=== PATIENT | female | born 1985 | race Caucasian/White ===

== ENCOUNTER 2017-06-26 09:02 | Emergency (ER) | payer BC ==
[~2017-06-26] VITALS: Ht 154.9 cm; Wt 74.8 kg
[2017-06-26 09:02] VITALS: BP_SYST 137
[2017-06-26 09:31] LABS: BILIRUBIN,URINE NEGATIVE (NEGATIVE); BLOOD, URINE 3+ (NEGATIVE); CLARITY/URINE CLEAR (CLEAR); COLOR,URINE YELLOW (YELLOW); GLUCOSE,URINE NEGATIVE (NEGATIVE); KETONES,URINE NEGATIVE (NEGATIVE); LEUKOCYTE ESTERASE ,URINE NEGATIVE (NEGATIVE); NITRITE, URINE NEGATIVE (NEGATIVE); PH,URINE 6.5 (5.0-8.0); PROTEIN URINE NEGATIVE (NEGATIVE); UROBILINOGEN,URINE 0.2 (0.2-1.0)
[2017-06-26 09:33] LABS: BASOPHILS # (AUTO) 0.1 K/uL (0.0-0.2); BASOPHILS % (AUTO) 0.9 % (0.0-2.0); EOSINOPHILS # (AUTO) 0.1 K/uL (0.0-0.4); EOSINOPHILS % (AUTO) 1.4 % (0.0-4.0); HEMATOCRIT 41.6 % (36-48); HEMOGLOBIN 13.9 g/dL (12.0-16.0); LYMPHOCYTES # (AUTO) 1.5 K/uL (1.0-5.5); LYMPHOCYTES % (AUTO) 26.4 % (20.5-51.5); MEAN CORPUSCULAR HEMOGLOBIN 32 pg (27-31); MEAN CORPUSCULAR HGB CONC 33 % (32-36); MEAN CORPUSCULAR VOLUME 94 fL (79.0-98.0); MONOCYTES # (AUTO) 0.5 K/uL (0.0-1.0); NEUTROPHILS # (AUTO) 3.6 K/uL (1.8-7.7); NEUTROPHILS % (AUTO) 62.3 % (40.0-70.0); PLATELET COUNT (AUTO) 218 K/uL (130-430); RED BLOOD CELL COUNT(AUTO) 4.41 MIL/uL (4.2-6.2); RED CELL DISTRIBUTION WIDTH 11.8 % (9.0-15.0); WHITE BLOOD COUNT (AUTO) 5.8 K/uL (4.8-10.8)
[2017-06-26 09:53] LABS: BACTERIA,URINE FEW /HPF (None Seen); MUCUS,URINE 1+ /LPF (None Seen); WBC,URINE 0-3 /HPF (0-3)
[2017-06-26 10:05] LABS: PROTHROMBIN TIME 10.3 SECS (9.5-12.5)
[2017-06-26 12:25] VITALS: BP_SYST 125
== END 2017-06-26 12:24 | disposition home or self-care (01) ==
LOC: SED 09:02
DX: O46.91 Antepartum hemorrhage, unspecified, first trimester (principal); J45.909 Unspecified asthma, uncomplicated; Z3A.08 8 weeks gestation of pregnancy
CPT/HCPCS: 36415; 76801; 76817; 81000-TC; 81025; 84702-TC; 85025; 85610-TC; 85730-TC; 86900; 86901; 99285

== ENCOUNTER 2018-02-16 10:34 | Observation (INO) | payer OTHER, BC ==
[~2018-02-16] VITALS: Ht 154.9 cm; Wt 83.9 kg
== END 2018-02-16 13:11 | disposition home or self-care (01) ==
LOC: SPU 10:34
PROVIDERS: ADMIT Obstetrics & Gynecology; ATTEND Obstetrics & Gynecology
DX: O46.93 Antepartum hemorrhage, unspecified, third trimester (principal); Z3A.33 33 weeks gestation of pregnancy
CPT/HCPCS: 76805; 81002; G0378

== ENCOUNTER 2018-03-31 05:00 | Inpatient (IN) | payer OTHER, BC ==
[~2018-03-31] VITALS: Ht 154.9 cm; Wt 91.6 kg
[2018-03-31] MEDS ORDERED: LR 1,000 ML IV SCH ×3 (05:18→08:57)
[2018-03-31] MEDS ORDERED: CITRIC ACID/SODIUM CITRATE 30 ML UDC PO ONE (05:30)
[2018-03-31] MEDS ORDERED: CLINDAMYCIN 900 mg/50mL D5W 50 ML IV ONE ×2 (05:30→06:15)
[2018-03-31 06:39] VITALS: BP_SYST 131
[2018-03-31] MEDS ORDERED: GENTAMICIN 120 MG/ ISO-OSM 100 ML PREMIX IV ONE (07:30)
[2018-03-31 07:51] LABS: HEMOGLOBIN 11.7 g/dL (12.0-16.0); WHITE BLOOD COUNT (AUTO) 6.3 K/uL (4.8-10.8)
[2018-03-31 07:54] LABS: MEAN CORPUSCULAR HEMOGLOBIN 34 pg (27-31); MEAN CORPUSCULAR HGB CONC 36 % (32-36); MEAN CORPUSCULAR VOLUME 96 fL (79.0-98.0); PLATELET COUNT (AUTO) 142 K/uL (130-430); RED BLOOD CELL COUNT(AUTO) 3.43 MIL/uL (4.2-6.2); RED CELL DISTRIBUTION WIDTH 13.1 % (9.0-15.0)
[2018-03-31 08:02] LABS: CREATININE 0.42 mg/dL (0.55-1.30); POTASSIUM 3.8 mmol/L (3.5-5.1)
[2018-03-31] MEDS ORDERED: ONDANSETRON HCL 4 MG/2 ML VIAL IVP PRN (08:30)
[2018-03-31] MEDS ORDERED: KETOROLAC TROMETHAMINE 60 MG/2 ML VIAL IM PRN (08:30)
[2018-03-31] MEDS ORDERED: NALOXONE HCL 0.4 MG/ML AMP (NARCAN) IVP PRN (08:30)
[2018-03-31] MEDS ORDERED: DIPHENHYDRAMINE INJ 50 MG/ML VIAL IM PRN (08:30)
[2018-03-31] MEDS ORDERED: MEPERIDINE HCL/PF 25 MG/ML DISP.SYRIN IVP PRN (08:30)
[2018-03-31] MEDS ORDERED: MORPHINE SULFATE 10MG/10ML PF AMP SP SCH (08:30)
[2018-03-31] MEDS ORDERED: MEPERIDINE HCL/PF 50 MG/ML AMP IVP PRN ×2 (08:30)
[2018-03-31] MEDS ORDERED: METOCLOPRAMIDE HCL 10 MG/2 ML VIAL IVP PRN (08:30)
[2018-03-31] MEDS ORDERED: OXYTOCIN/0.9 % SODIUM CHLORIDE 1,000 ML IV ONE (08:57)
[2018-03-31] MEDS ORDERED: RHO(D) IMMUNE GLOBULIN/MALTOSE 1500 UNITS/1.3 ML (WINHRO) IM PRN (09:00)
[2018-03-31] MEDS ORDERED: SENNOSIDES/DOCUSATE SODIUM 1 TAB TABLET(SENOKOT-S) PO PRN (09:00)
[2018-03-31] MEDS ORDERED: OXYCODONE/ACETAMINOPHEN 5-325 TABLET PO PRN (09:00)
[2018-03-31] MEDS ORDERED: LANOLIN 7 GM OINT. TP PRN (09:00)
[2018-03-31] MEDS ORDERED: ANUSOL 1 EA SUPP.RECT (PREPARATION H) RC PRN (09:00)
[2018-03-31] MEDS ORDERED: DOCUSATE SODIUM 100 MG CAPSULE PO PRN (09:00)
[2018-03-31] MEDS ORDERED: BISACODYL 10 MG/SUPPOSITORY RC PRN (09:00)
[2018-03-31] MEDS ORDERED: MEASLES,MUMPS&RUBELLA VACC/PF 12500 UNIT/0.5 ML VIAL SUBQ PRN (09:00)
[2018-03-31 09:05] VITALS: BP_SYST 102
[2018-03-31 09:24] LABS: LYMPHOCYTES % (MANUAL) 12 % (20-46); MONOCYTES % (MANUAL) 2 % (0-11)
[2018-03-31 09:25] LABS: BAND % (MANUAL) 1 % (0-6); BASOPHILS % (MANUAL) 0 % (0-2); EOSINOPHILS % (MANUAL) 0 % (0-7)
[2018-03-31] MEDS ORDERED: TEMAZEPAM 15 MG CAPSULE PO PRN (21:00)
[2018-04-01] MEDS: IBUPROFEN 800 MG TABLET PO PRN ×3 (06:09→23:10)
[2018-04-01 09:00] LABS: HEMATOCRIT 31.5 % (36-48)
[2018-04-01] MEDS: SIMETHICONE 80 MG TAB.CHEW PO PRN ×2 (12:30→17:38)
[2018-04-01] MEDS: OXYCODONE/ACETAMINOPHEN 5-325 TABLET PO PRN (23:10)
[2018-04-02] MEDS: IBUPROFEN 800 MG TABLET PO PRN (06:00)
[2018-04-02] MEDS ORDERED: GENTAMICIN 120 mg/ NS 100 mL IVPB IV ONE (07:40)
[2018-04-02] MEDS ORDERED: BUPIVACAINE /PF 0.75% 10 ML VIAL INJ ONE (07:40)
[2018-04-02] MEDS ORDERED: NS IRRIG SOLN 1000 ML IR ONE (07:40)
[2018-04-02] MEDS ORDERED: ePHEDrine sulfate 50 MG/ML VIAL IVP ONE (07:40)
[2018-04-02] MEDS ORDERED: ONDANSETRON HCL 4 MG/2 ML VIAL IVP ONE (07:40)
[2018-04-02] MEDS ORDERED: MORPHINE SULFATE 10MG/10ML PF AMP EP ONE (07:40)
[2018-04-02] MEDS ORDERED: OXYTOCIN 10 UNIT/ML VIAL IV ONE (07:40)
[2018-04-02] MEDS ORDERED: MIDAZOLAM HCL 5 MG/5 ML VIAL IVP ONE ×2 (07:40)
[2018-04-02] MEDS ORDERED: LR 1,000 ML IV.SOLN IV ONE (07:40)
[2018-04-02] MEDS: OXYCODONE/ACETAMINOPHEN 5-325 TABLET PO PRN (09:30)
== END 2018-04-02 11:05 | disposition home or self-care (01) | DRG 766 ==
LOC: SPU 05:00
PROVIDERS: ADMIT Obstetrics & Gynecology; ATTEND Obstetrics & Gynecology
PROC: 10D00Z1 Extraction of Products of Conception, Low, Open Approach (ICD-10-PCS; principal; 2018-03-31 07:30)
DX: O34.211 Maternal care for low transverse scar from previous cesarean delivery (principal); O99.824 Streptococcus B carrier state complicating childbirth; O99.52 Diseases of the respiratory system complicating childbirth; O99.62 Diseases of the digestive system complicating childbirth; K21.9 Gastro-esophageal reflux disease without esophagitis; J45.909 Unspecified asthma, uncomplicated; E28.2 Polycystic ovarian syndrome; O34.83 Maternal care for other abnormalities of pelvic organs, third trimester; Z83.3 Family history of diabetes mellitus; Z37.0 Single live birth; Z3A.39 39 weeks gestation of pregnancy; Z83.49 Family history of other endocrine, nutritional and metabolic diseases; Z88.0 Allergy status to penicillin; Z87.440 Personal history of urinary (tract) infections
CPT/HCPCS: 36415; 80048; 85007; 85018-TC; 85027; 86592; 86886; 86900; 86901; 94760; J1580; J1885; J2250; J2274; J2405; J2590; J3490; J7120

== ENCOUNTER 2021-06-23 07:01 | Emergency (ER) | payer BC, OTHER ==
[~2021-06-23] VITALS: Ht 154.9 cm; Wt 86.2 kg
[2021-06-23 07:10] VITALS: BP_SYST 128
--- NOTE | 2021-06-23 07:10 | NUR ---
Pt walked in to ER with c/o cough x4 days, reports testing -Covid 1 day ago. Denies other flu-like symptoms at this time. V/S stable, no acute distress noted.
--- NOTE | 2021-06-23 07:10 | NUR ---
BROUGHT BACK TO BED #8 AND TRIAGED. REPORT GIVEN TO SANDI
--- NOTE | 2021-06-23 07:15 | NUR ---
ER Dr. Sanchez at bedside examining patient.
--- NOTE | 2021-06-23 07:44 | NUR ---
Radiology at bedside for CXR
[2021-06-23] MEDS ORDERED: PRED20TA PO (08:09)
[2021-06-23] MEDS ORDERED: IBUP-1969 PO (08:09)
--- NOTE | 2021-06-23 08:40 | NUR ---
Patient given written and verbal discharge instructions and verbalizes understanding. ER MD discussed with patient the results and treatment provided. Patient in stable condition. ID arm band removed. Rx of prednisone and motrin given. Patient educated on pain management and to follow up with PMD. Pain Scale 0. Opportunity for questions provided and answered. Medication side effect fact sheet provided.
[2021-06-23 08:42] VITALS: BP_SYST 128
== END 2021-06-23 08:40 | disposition home or self-care (01) ==
LOC: SED 07:01
DX: J40 Bronchitis, not specified as acute or chronic (principal); Z88.0 Allergy status to penicillin
CPT/HCPCS: 71045; 99283

== ENCOUNTER 2022-07-08 06:40 | Emergency (ER) | payer OTHER ==
[~2022-07-08] VITALS: Ht 154.9 cm; Wt 89.4 kg
[~2022-07-08 06:40] MED LIST: IBUP-1969 PO; PRED20TA PO
--- NOTE | 2022-07-08 06:48 | NUR ---
ER DR. SIEGEL EXAMINING PT IN TRIAGE
[2022-07-08 07:15] VITALS: BP_SYST 127
--- NOTE | 2022-07-08 07:15 | NUR ---
Patient triaged and placed in waiting room. VSS and patient appears in no acute distress at this time. Accompanied by SELF, awaiting available bed, and MD notified of need for MSE.
[2022-07-08 08:02] LABS: BASOPHILS # (AUTO) 0.1 K/uL (0.0-0.2); BASOPHILS % (AUTO) 0.8 % (0.0-2.0); EOSINOPHILS # (AUTO) 0.1 K/uL (0.0-0.4); EOSINOPHILS % (AUTO) 1.4 % (0.0-4.0); HEMATOCRIT 40.2 % (36-48); HEMOGLOBIN 14.1 g/dL (12.0-16.0); LYMPHOCYTES # (AUTO) 1.2 K/uL (1.0-5.5); LYMPHOCYTES % (AUTO) 16.7 % (20.5-51.5); MEAN CORPUSCULAR HEMOGLOBIN 32 pg (27-31); MEAN CORPUSCULAR HGB CONC 35 % (32-36); MEAN CORPUSCULAR VOLUME 90 fL (79.0-98.0); MONOCYTES # (AUTO) 0.6 K/uL (0.0-1.0); MONOCYTES % (AUTO) 8.6 % (1.7-9.3); NEUTROPHILS # (AUTO) 5.3 K/uL (1.8-7.7); NEUTROPHILS % (AUTO) 72.5 % (40.0-70.0); PLATELET COUNT (AUTO) 222 K/uL (130-430); RED BLOOD CELL COUNT(AUTO) 4.44 MIL/uL (4.2-6.2); RED CELL DISTRIBUTION WIDTH 13.2 % (9.0-15.0); WHITE BLOOD COUNT (AUTO) 7.3 K/uL (4.8-10.8)
[2022-07-08 08:10] LABS: CALCIUM 8.9 mg/dL (8.4-11.0); CREATININE 0.75 mg/dL (0.55-1.30)
[2022-07-08 08:15] LABS: ALBUMIN 3.8 g/dL (3.4-4.8); C-REACTIVE PROTEIN QUANT 0.5 mg/dL (0-0.5); TOTAL BILIRUBIN 0.5 mg/dL (0.0-1.0)
[2022-07-08] MEDS ORDERED: CLIN-142 PO (09:12)
[2022-07-08] MEDS ORDERED: IBUP-1969 PO (09:12)
[2022-07-08 09:15] VITALS: BP_SYST 124
--- NOTE | 2022-07-08 09:15 | NUR ---
Patient given written and verbal discharge instructions and verbalizes understanding. ER MD discussed with patient the results and treatment provided. Patient in stable condition. ID arm band removed. Rx of CLINDAMYCIN AND IBUPROFEN given. Patient educated on pain management and to follow up with PMD. Pain Scale 0/10. Opportunity for questions provided and answered. Medication side effect fact sheet provided.
--- NOTE | 2022-07-08 12:02 | NUR ---
Note undone in EDM - 07/08/22 at 1202 by [email or web address] Patient given written and verbal discharge instructions and verbalizes understanding. ER discussed with patient the results and treatment provided. Patient in stable condition. ID arm band removed. Rx of CLINDAMYCIN AND IBUPROFEN given. Patient educated on pain management and to follow up with PMD. Pain Scale 0/10. Opportunity for questions provided and answered. Medication side effect fact sheet provided.
== END 2022-07-08 09:15 | disposition home or self-care (01) ==
LOC: SED 06:40
DX: L03.211 Cellulitis of face (principal); J45.909 Unspecified asthma, uncomplicated; Z88.0 Allergy status to penicillin; Z79.899 Other long term (current) drug therapy
CPT/HCPCS: 36415; 80053; 83605; 84703; 85025; 86140; 99283